=== PATIENT | male | born 1935 | race Caucasian/White ===

== ENCOUNTER 2018-10-04 13:22 | Outpatient (CLI) | payer MEDICARE, SELFPAY ==
[2018-10-06 09:54] LABS: PSA, Diagnostic 0.3 ng/ml (0-6.5)
[2018-10-07 02:24] LABS: Testosterone, Total 482 ng/dL (240-950)
== END 2018-10-04 13:42 ==
PROVIDERS: PCP Family Medicine; Visit Provider Nurse Practitioner
DX: C61 Malignant neoplasm of prostate (principal)
CPT/HCPCS: 36415; 84403; 84153

== ENCOUNTER 2019-04-25 12:22 | Outpatient (CLI) | payer MEDICARE, SELFPAY ==
[2019-04-26 09:58] LABS: PSA, Diagnostic 0.2 ng/ml (0-6.5)
[2019-04-28 12:54] LABS: Testosterone, Total 664 ng/dL (240-950)
== END 2019-04-25 12:42 ==
PROVIDERS: PCP Family Medicine; Visit Provider Nurse Practitioner
DX: C61 Malignant neoplasm of prostate (principal)
CPT/HCPCS: 36415; 84403; 84153